=== PATIENT | male | born 2005 | race Caucasian/White ===

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

== ENCOUNTER 2024-06-27 12:22 | Emergency (ER) | payer OTHER ==
[2024-06-27] MEDS ORDERED: Dexamethasone 10 MG/ML VIAL ONE (13:45)
[2024-06-27] MEDS ORDERED: Ipratropium/Albuterol 3 ML NEB ONE (13:45)
== END 2024-06-27 15:09 | disposition home or self-care (01) ==
LOC: MADERS 12:22
DX: J45.901 Unspecified asthma with (acute) exacerbation (principal); J06.9 Acute upper respiratory infection, unspecified; F17.220 Nicotine dependence, chewing tobacco, uncomplicated
CPT/HCPCS: 71046; 87428; J1100; J7620